=== PATIENT | male | born 1955 ===

== ENCOUNTER 2018-07-25 00:14 | Emergency (ER) | payer MEDICAID, OTHER ==
[2018-07-25 00:49] VITALS: O2SAT 99
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
[2018-07-25 01:08] VITALS: BP 140/68; PULSE 83; RESP 18; TEMP 98
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
== END 2018-07-25 01:08 | disposition home or self-care (01) ==
LOC: C.ER 00:14
DX: R07.89 Other chest pain (principal); V49.49XA Driver injured in collision with other motor vehicles in traffic accident, initial encounter; W22.10XA Striking against or struck by unspecified automobile airbag, initial encounter; Y92.410 Unspecified street and highway as the place of occurrence of the external cause
CPT/HCPCS: 71046; 96372; 99283; J1885

== ENCOUNTER 2018-09-06 08:29 | Outpatient (CLI) | payer MEDICAID | END 2018-09-06 08:30 | disposition home or self-care (01) | LOC: C.CARD 08:29 ==